=== PATIENT | male | born 1975 | race Hispanic/Latino ===

== ENCOUNTER → 2024-10-30 | Outpatient (REF) | payer OTHER | LOC: RAD 10:11 → EDSTATUS 11-23 11:30 | PROVIDERS: ATTEND Internal Medicine Gastroenterology | DX: Z01.818 Encounter for other preprocedural examination (principal); Z12.11 Encounter for screening for malignant neoplasm of colon; R10.10 Upper abdominal pain, unspecified | CPT/HCPCS: 93005 ==